=== PATIENT | male | born 1940 | race Caucasian/White ===

== ENCOUNTER → 2023-11-07 14:36 | Outpatient (REF) | payer OTHER, SELFPAY | LOC: RCS 14:36 | PROVIDERS: ATTENDING PHYSICIAN Internal Medicine Cardiovascular Disease; FAMILY PHYSICIAN Family Medicine | DX: I25.10 Atherosclerotic heart disease of native coronary artery without angina pectoris (principal); I07.1 Rheumatic tricuspid insufficiency; I45.2 Bifascicular block | CPT/HCPCS: 93306 ==

== ENCOUNTER 2025-03-14 12:24 | Emergency (ER) | payer OTHER, SELFPAY ==
[2025-03-14 12:38] VITALS: BP 163/84
[2025-03-14 12:56] LABS: Hematocrit 40.0 % (39.0-52.0); Hemoglobin 13.5 g/dL (13.0-18.0); Mean Corp Hgb Conc. 33.8 g/dL (33.0-37.0); Mean Corpuscular Volume 87.3 fL (80.0-94.0); Nucleated Red Blood Cells % 0 % (-); Platelet Count 162 10^3/uL (130-400); Red Cell Dist. Width 14.3 % (11.5-14.5)
[2025-03-14 13:06] LABS: INR 2.17; PT 24.3 Sec (11.4-14.6)
[2025-03-14 13:21] LABS: Troponin I < 0.012 ng/ml
[2025-03-14 13:24] LABS: ALT (SGPT) 25 U/L (0-50); AST (SGOT) 25 U/L (17-59); Albumin 4.3 g/dl (3.5-5.0); Alkaline Phosphatase 78 U/L (38-126); Blood Urea Nitrogen 18 mg/dl (9-20); Calcium 9.2 mg/dl (8.4-10.2); Carbon Dioxide 27 mmol/L (22-30); Chloride 107 mmol/L (98-107); Glucose 108 mg/dl (70-99); Potassium 4.9 mmol/L (3.5-5.1); Sodium 139 mmol/L (135-145); Total Protein 6.8 g/dl (6.3-8.2); eGFR 59.26
--- NOTE | 2025-03-14 16:42 | ED.GENMED ---
History of Present Illness
General
Chief Complaint: Chest Pain
Source: patient
Exam Limitations: none
Time Seen by Provider: 03/14/25 16:25
History of Present Illness
History of Present Illness:
84yoM with a history of coronary artery disease, hypertension, hyperlipidemia, pulmonary embolism on Coumadin, and remote history of prostate cancer presenting with his for evaluation after an episode of dizziness. Patient was sitting eating
breakfast around 10am this morning when he suddenly felt like the room was spinning. This lasted a few minutes before resolving. He has not had any further episodes of dizziness but he still feels 'not right.' He states his head feels 'thick.'
Patient checked his blood pressure shortly after the dizzy spell which was elevated at 184/120. He denies any visual changes, headache, ear pain, tinnitus, paresthesias, speech disturbance, chest pain, shortness of breath. No recent illness. No
prior history of vertigo.
Past History
Past History
ED Past Medical History: CAD, HTN, Hypercholesterolemia, Valvular disease (MR), Other (PE on Coumadin) and Other (PMR); Negative CHF or COPD
ED Past Surgical History: Cardiac (Cardiac cath, 2 stents in ', 1 stent in )
Social History
Tobacco: Non-smoker
Alcohol: None
Drug: None
Personal:
Living: with family
Employment: Retired
Family History
Family History: CAD
Phy Exam
General Physical Exam
General Presentation: well appearing and no apparent distress
General Skin: warm and dry
General Habitus: normal
General Mental: alert
ENT Exam
ENT Exam: TM's normal and normocephalic
Eye Exam
Eye Exam: PERRL, EOMI and conjunctiva normal
Cardiovascular Exam
Cardiovascular Exam: regular rate/rhythm and no edema
Pulmonary Exam
Pulmonary Exam: lungs clear, no respiratory distress, no rales, no crackles, no rhonchi and no wheezing
Neurological Exam
Neurological Exam: alert, CN II-XII intact, no motor deficits, no sensory deficits, speech normal, normal gait and other (CN 2-12 intact. PERRL. EOMs intact without nystagmus. Negative drift x4. Normal finger to nose and heel to cerrato bilaterally.
Normal gait.)
[place] Coma Scale
Eye Opening: Spontaneous
Verbal Response: Oriented
Motor Response: Obeys Commands
GCS Total Score: 15
Skin Exam
Skin Exam: normal color and warm/dry
Psychiatric Exam
Psychiatric Exam: normal mood/affect
Scores
NIH Stroke Score
Level of Consciousness: 0 - Alert
LOC Questions: 0-Answers both correctly
LOC Commands: 0-Performs both correctly
Best Horizontal Gaze: 0-Normal
Visual [place]or[place]: 0=Normal, no visual loss
Facial Palsy: 0=Normal, symmetrical
Motor - Right Arm: 0=No drift 10 seconds
Motor - Left Arm: 0=No drift 10 seconds
Motor - Right Le-No drift 5 seconds
Motor - Left Le-No drift 5 seconds
Limb Ataxia: 0-Absent
Sensation: 0-Normal
Best Language: 0-No aphasia
Dysarthria: 0-Normal
Extinction and Inattention: 0-No abnormality
NIH Total Score:: 0
Heart Score for Chest Pain Patients
STEMI patient?: Not applicable
Course
Orders/Labs/Results
Orders:
Orders
03/14/25 12:28
Electrocardiogram (*1) Urgent
Reason for Study: Chest Pain
EKG- Treatment ONCE
03/14/25 12:50
Complete Blood Count/With Diff Urgent
Comprehensive Metabolic Panel Urgent
Prothrombin Time Urgent
Troponin I Urgent
03/14/25 16:39
PT Consult [Pt Eval And Treat] Urgent
Treatment: vestibular eval
Activity Level: Out of Bed- Ad Ella
03/14/25 16:41
Electrocardiogram (*1) Urgent
Reason for Study: Vertigo / Dizzy
EKG- Treatment ONCE
03/14/25 16:54
CT Head W/o Iv Contrast Urgent
Comment:
Reason For Exam: dizziness
03/14/25 17:03
Troponin I Urgent
Abnormal Lab Results
03/14/25
12:50
RBC 4.58 L 10^6/uL
(4.70-6.10)
PT 24.3 H Sec
(11.4-14.6)
Glucose 108 H mg/dl
(70-99)
03/14/25 12:50
03/14/25 12:50
Vital Signs
Initial and Last Documented VS:
Initial Vital Signs
Temp Pulse Resp BP Pulse Ox
98.8 F 56 18 163/84 98
03/14/25 12:38 03/14/25 12:38 03/14/25 12:38 03/14/25 12:38 03/14/25 12:38
Last Documented Vital Signs
Temp Pulse Resp BP Pulse Ox
98.8 F 52 18 137/65 99
03/14/25 12:38 03/14/25 18:46 03/14/25 18:46 03/14/25 18:46 03/14/25 18:46
MDM/Problems Addressed
Differential Diagnosis Includes:
84yoM here after an episode of dizziness this afternoon. [place] like room was spinning for a few minutes. No further dizziness but states his head feels thick. No CP/SOB. BP 163/84 on arrival. He is well appearing in no distress. No nystagmus or
ataxia noted on exam. He is ambulating with a steady gait. NIHSS 0. Differential diagnosis includes but is not limited to: BPPV, vestibular neuronitis, doubt CVA given resolution of symptoms, doubt hypertensive urgency
Initial ED plan: Workup initiated in triage. EKG shows sinus bradycardia without ischemic changes and troponin WNL. Will check delta troponin/EKG, CT head, and consult PT for vestibular evaluation.
*Pulse Oximetry
SaO2: 98
Oxygen Mode of Delivery: Room air
Patient hypoxic: no (98%)
*EKG
Interpreted by ED Provider?: Yes
EKG Intrepretation Date: 03/14/25
Heart Rate: 57
Rate: bradycardiac
Rhythm: sinus
[place]: left axis deviation
QRS Pattern: right bundle branch block and other (LAFB)
Ischemia: other (nonspecific T wave changes)
*Critical Care Note
Total Time (30-74mins, 75-104mins- exclusive of procedures): Not Applicable
Update Note
Update Note:
Patient assessed by physical therapy and all vestibular testing negative. CT head negative for acute findings. Repeat EKG and troponin unchanged. On reassessment, patient is asymptomatic and has not had any further dizziness. Repeat blood
pressure 137/65. No indication for hospitalization. He was advised to follow-up closely with his PCP and strict ED return precautions reviewed. Patient in agreement with plan and was discharged in stable condition.
ED Attending Note
-
Portions of this chart may have been created with voice recognition software.� Occasional wrong word or��sound alike� substitutions may have occurred due to the inherent limitations of voice recognition software.
Discharge Plan
Departure
Patient Disposition: Home (Routine Discharge)
Date of Disposition: 03/14/25
Time of Disposition: 18:44
Patient with high blood pressure during this ER visit?: Yes
Discharge Problem:
Episode of dizziness
Instructions: Vertigo (a type of dizziness)
Prescriptions:
No Action
metoprolol succinate 25 MG tablet extended release 24 hr
12.5 mg PO DAILY
cyanocobalamin (vitamin B-12) 1,000 MCG tablet
500 mcg PO DAILY
folic acid 0.4 MG tablet
0.4 mg PO DAILY
amlodipine-benazepril 1 CAPSULE capsule
1 cap PO DAILY
atorvastatin 40 MG tablet
40 mg PO QPM Qty: 90 3RF
nitroglycerin 0.4 MG tablet, sublingual
0.4 mg sublingual [id number] PRN (Reason: chest pain) Qty: 25 3RF
pyridoxine (vitamin B6) 50 MG tablet
50 mg PO DAILY
aspirin 81 MG tablet,chewable
81 mg PO QPM
cholecalciferol (vitamin D3) 1,000 UNITS tablet
1,000 units PO DAILY
warfarin [Jantoven] 5 MG tablet
5 mg PO DAILY@1200 Qty: 0 0RF
Patient Comments:
Rx Instructions:
resume coumadin tonight 10/23
Referrals:
UNKNOWN - PT DOES,NOT KNOW [Unknown Provider]
Activity Restrictions/Additional Instructions:
Please follow-up with your family doctor on Monday. Return to the ER with any new or worsening symptoms.
Interventions
Interventions:
*Risk Screen - Suicide Last Done: 03/14/25 12:38
*General Assessment Last Done: 03/14/25 17:00
*Neglect/Abuse Screening Last Done: 03/14/25 17:00
*ED- Fall Risk Assessment Last Done: 03/14/25 17:00
*ED COVID-19 Vaccine History Last Done: 03/14/25 17:00
*Nursing Disposition Last Done: 03/14/25 19:06
ED- Cardiac Assessment Last Done: 03/14/25 17:00
Discharge Date and Time
Discharge Date/Time: 03/14/25 19:07
Print Language: CUBAN
[2025-03-14 17:02] VITALS: BMI 27.8
[2025-03-14 17:06] VITALS: BP 165/71
[2025-03-14 17:45] LABS: Troponin I 0.013 ng/ml
[2025-03-14 18:46] VITALS: BP 137/65
== END 2025-03-14 19:07 | disposition home or self-care (01) ==
LOC: EMR 12:24
PROVIDERS: Emergency Medicine; Physician Assistant; EMERGENCY PHYSICIAN Emergency Medicine; FAMILY PHYSICIAN Family Medicine
DX: R42 Dizziness and giddiness (principal); I25.10 Atherosclerotic heart disease of native coronary artery without angina pectoris; I10 Essential (primary) hypertension; E78.00 Pure hypercholesterolemia, unspecified; Z86.711 Personal history of pulmonary embolism; Z79.01 Long term (current) use of anticoagulants; Z95.5 Presence of coronary angioplasty implant and graft; Z85.46 Personal history of malignant neoplasm of prostate
CPT/HCPCS: 99284; 70450; 80053; 84484; 85025; 85610; 93005